=== PATIENT | male | born 1980 | race Caucasian/White ===

== ENCOUNTER 2016-10-05 20:34 | Emergency (ER) | payer OTHER ==
[~2016-10-05] VITALS: Ht 190.5 cm; Wt 99.8 kg
[~2016-10-05 20:34] MED LIST: IBUPROFEN 600600 M1 PO; NORCO 5-325 TA1 EACH PO; VALIUM2 MG PO
[2016-10-05 20:37] VITALS: BP 126/86
[2016-10-05] MEDS ORDERED: MOBIC15 MG PO (20:41)
[2016-10-05] MEDS ORDERED: TRAMADOL 50 MG50 MG PO (20:41)
== END 2016-10-05 20:56 | disposition home or self-care (01) ==
LOC: ER 20:34
DX: S46.911A Strain of unspecified muscle, fascia and tendon at shoulder and upper arm level, right arm, initial encounter (principal); F10.99 Alcohol use, unspecified with unspecified alcohol-induced disorder; X58.XXXA Exposure to other specified factors, initial encounter; Y93.89 Activity, other specified; Y92.89 Other specified places as the place of occurrence of the external cause; Y99.8 Other external cause status